=== PATIENT | male | born 1965 | race Caucasian/White ===

== ENCOUNTER → 2018-01-05 | Outpatient (CLI) | payer OTHER ==
--- NOTE | 2018-01-05 14:35 | KCIC ---
EXAM: MRI RIGHT SHOULDER DATE: 01/05/2018 1:15 PM COMPARISON: None INDICATION: Right shoulder pain. Injury 2 years ago. Painful range of motion. TECHNIQUE: Multiplanar, multisequence MR imaging of the right shoulder was performed without IV contrast. FINDINGS: Moderate AC joint degenerative changes are seen. Associated edema and mild effusion are seen. Trace subacromial-subdeltoid bursal edema likely bursitis. No definite full-thickness rotator cuff tear is identified. Approximately 8 mm from the greater tuberosity attachment, there is a increased signal at the articular sided consistent with articular sided tear involving approximately 30% tendon thickness of the posterior fibers of the supraspinatus tendon. This measures 8 mm in AP dimension. Mild increased signal and thickening of the subscapularis tendon consistent with moderate tendinosis. No rotator cuff muscle atrophy. The coracohumeral interval measures 5 mm anteriorly changes seen with anterior shoulder impingement. Thickening and increased signal of the intra-articular long head biceps tendon consistent with moderate tendinosis. Intra-articular long head biceps tendon is seen within the bicipital groove. Evaluation of the labrum is limited on this nonarthrographic study. No discrete labral tear although there is mild deformity and increased signal within the anterior-inferior labrum. No fracture or AVN. IMPRESSION: 1. Partial-thickness articular sided tear of the supraspinatus tendon approximately 8 mm from the attachment, measuring 8 mm in AP dimension. 2. Trace subacromial-subdeltoid bursal edema likely bursitis. 3. Moderate AC joint degenerative changes are seen with associated edema and mild effusion. 4. Anterior coracohumeral interval distance measures 5 mm which may be seen with anterior shoulder impingement. Moderate subscapularis tendinosis. 5. Intra-articular long head biceps tendinosis. Electronically signed by: Flaquito Newman MD (01/05/2018 2:31 PM) [id number]
== END | disposition home or self-care (01) ==
LOC: KCIC MRI 12:50
PROVIDERS: ATTEND Orthopaedic Surgery
DX: M75.111 Incomplete rotator cuff tear or rupture of right shoulder, not specified as traumatic (principal)
CPT/HCPCS: 73221